=== PATIENT | female | born 1965 | race Caucasian/White ===

== ENCOUNTER → 2017-08-02 | Outpatient (CLI) | payer OTHER | END | disposition home or self-care (01) | LOC: RD 08:22 | DX: L02.612 Cutaneous abscess of left foot (principal) ==

== ENCOUNTER 2017-09-22 19:28 | Emergency (ER) | payer OTHER ==
[~2017-09-22] VITALS: Ht 162.6 cm; Wt 70.5 kg
[2017-09-22 21:11] VITALS: BP 144/77
== END 2017-09-22 21:11 | disposition home or self-care (01) ==
LOC: ED 19:28
DX: T24.212A Burn of second degree of left thigh, initial encounter (principal); T24.211A Burn of second degree of right thigh, initial encounter; X10.2XXA Contact with fats and cooking oils, initial encounter; Y93.89 Activity, other specified; Y92.89 Other specified places as the place of occurrence of the external cause; Y99.8 Other external cause status
CPT/HCPCS: 90715; J1885

== ENCOUNTER 2019-09-20 14:27 | Emergency (ER) | payer OTHER ==
[~2019-09-20] VITALS: Ht 162.6 cm; Wt 73.0 kg
[2019-09-20 14:35] VITALS: Ht 162.6 cm; Wt 73.0 kg
[2019-09-20 16:00] LABS: PLATELET COUNT 243 x10^3mcL (130-400); RED CELL DISTRIBUTION WIDTH 13.5 % (11.5-14.5)
[2019-09-20 16:04] LABS: BASOPHIL % 0 % (0-2)
[2019-09-20 16:16] LABS: CALCIUM 8.5 mg/dL (8.5-10.1); CARBON DIOXIDE 26.7 mmol/L (21-32); CHLORIDE SERUM 105 mmol/L (98-107); CREATININE SERUM 0.8 mg/dL (0.6-1.0); GFR1 > 60 mL/min; GLUCOSE SERUM 130 mg/dL (74-106); POTASSIUM SERUM 3.7 mmol/L (3.5-5.1); SODIUM SERUM 142 mmol/L (136-145)
[2019-09-20 18:44] VITALS: BP 118/70
== END 2019-09-20 18:44 | disposition home or self-care (01) ==
LOC: ED 14:27
PROVIDERS: Student in an Organized Health Care Education/Training Program
DX: J45.909 Unspecified asthma, uncomplicated (principal); M54.6 Pain in thoracic spine
CPT/HCPCS: 36415; 87804; J7512; J7613; J7620